=== PATIENT | male | born 1990 | race Two or more races ===

== ENCOUNTER 2020-07-27 19:36 | Emergency (ER) | payer MEDICAID ==
[~2020-07-27] VITALS: Ht 180.3 cm; Wt 85.0 kg
[2020-07-27 20:34] LABS: HEMOGLOBIN. 15.2 g/dL (14.0-18.0); MEAN CORPUSCULAR HEMOGLOBIN 29.9 pg (28.0-32.0); MEAN CORPUSCULAR VOLUME 94.6 fL (80.0-94.0); MEAN PLATELET VOLUME 8.5 fl (7.4-10.4); PLATELET 206 x1000/uL (130-400); RED BLOOD CELL COUNT 5.07 mill/uL (4.7-6.1); RED CELL DISTRIBUTION WIDTH 15.2 % (11.6-14.6)
[2020-07-27 20:41] LABS: CHLORIDE 102 mEq/L (98-107)
[2020-07-27 20:45] LABS: ETHANOL BLOOD < 10 mg/dL
[2020-07-27] MEDS: SODIUM CHLORIDE 0.9% 1,000 ML IV ONE (20:59)
[2020-07-27] MEDS: ONDANSETRON HCL 4MG/2ML INJ IV ONE (20:59)
[2020-07-27 21:13] LABS: CLARITY URINE CLEAR (CLEAR); COLOR URINE YELLOW (YELLOW); KETONES URINE NEGATIVE (NEGATIVE); LEUKOCYTE ESTERASE URINE NEGATIVE (NEGATIVE); NITRITE URINE NEGATIVE (NEGATIVE); OCCULT BLOOD URINE 1+ (NEGATIVE); PROTEIN URINE TRACE (NEGATIVE); SPECIFIC GRAVITY URINE 1.011 (1.005-1.030); UROBILINOGEN URINE 0.2 E.U./dL (0.2-1.0)
[2020-07-27 21:24] LABS: PLATELET ESTIMATE NORMAL
[2020-07-27 21:26] LABS: OPIATES URINE SCREEN NEGATIVE (NEGATIVE); PHENCYCLIDINE URINE SCREEN NEGATIVE (NEGATIVE)
[2020-07-27 21:27] LABS: *AMPHETAMINES SCREEN URINE NEGATIVE (NEGATIVE); *BARBITURATES SCREEN URINE NEGATIVE (NEGATIVE); *BENZODIAZEPINES SCREEN URINE NEGATIVE (NEGATIVE); *COCAINE SCREEN URINE NEGATIVE (NEGATIVE); CANNABINOID URINE SCREEN NEGATIVE (NEGATIVE); METHADONE URINE SCREEN NEGATIVE (NEGATIVE)
[2020-07-27] MEDS ORDERED: NALO4SPR BOTHNSTRLS (21:49)
[2020-07-27 21:59] VITALS: BP 114/81
== END 2020-07-27 22:01 | disposition home or self-care (01) ==
LOC: ER 19:36
DX: T40.601A Poisoning by unspecified narcotics, accidental (unintentional), initial encounter (principal); I49.9 Cardiac arrhythmia, unspecified; Y92.9 Unspecified place or not applicable
CPT/HCPCS: 36415; 80053; 80305; 80307; 80320; 80329; 81003; 85025; 93005; 96361; 96374; 99284; J2405; J7030; 99283; G0480